=== PATIENT | female | born 1950 | race Caucasian/White ===

== ENCOUNTER 2016-06-13 05:33 | Day surgery (SDC) | payer MEDICARE, MEDICAID ==
[~2016-06-13] VITALS: Ht 160 cm; Wt 81.6 kg
--- NOTE | 2016-06-18 13:29 | OR ---
ADMIT: 06/13/2016 RM/LOC: [facility] MR#: [id number] ACC#: [id number] [address] [id number] FRANDY MORANINE Caleb [address] [address] Operative/Delivery Room Report SEX: F AGE: 65 : 1950 SURGERY DATE: 06/13/2016 SURGEON: Geraldo Go MD PREOPERATIVE DIAGNOSIS: Question of a spigelian hernia, left abdomen. POSTOPERATIVE DIAGNOSIS: Incisional hernia in the left lower abdomen. PROCEDURE: Laparoscopic repair of this hernia with an 11 cm Ventralight mesh. CEPHALOMETRIC ANALYST: Clover Aleman APRN NP, who was necessary for adequate assistance, exposure, and completion of this case. ANESTHESIA: General endotracheal tube anesthesia. ESTIMATED BLOOD LOSS: 10 mL. INDICATION FOR PROCEDURE: Please see H and P. DESCRIPTION OF PROCEDURE: After the risks, benefits, possible complications, and the alternatives had been explained and informed consent had been obtained, the patient was taken back to the operating room, underwent general anesthesia, and the surgical field was prepped and draped in a sterile manner. First, I made an infraumbilical incision. The Veress needle was inserted. The abdomen was insufflated with CO2. I placed a 5 mm port and the camera was placed directly through this site. She had this right paramedian incision and then she has had and then I think at some point, maybe another laparoscopic scar. As look into the left kind of lower abdomen in picture #1, you can see some of this fat, omentum stuck up in a defect there. So, I slowly worked all that down sharply with electrocautery scissors. Once it was all out and freed up, you can see that in picture #2, and this is chronic enough it just did not want to come back together with stitches. I tried some 0 Polysorb type suture or 0 Ethibond, and like I said, it just it was under so much tension that was going to just come back and so, I placed an another 12 mm right-sided port and chose an 11 cm. After measuring this, it was basically 5 x 6 cm and so, I chose an 11 cm Ventralight mesh with the Echo ADMIT: 06/13/2016 RM/LOC: [facility] MR#: [id number] [address] [place], [place] [id number] FRANDY MORANINE Caleb [address] [place] [address] Operative/Delivery Room Report SEX: F AGE: 65 : 1950 positioning system, and it was soaked, placed in the abdominal cavity, brought up into the defect. The Echo system for position was blown up. The mesh held up there nicely and then I was able to use the tacker to tack it into position, first circumferentially on the outside and then another row around the inside, kind of pulled, really tried to hold it in good place there, and you can see those pictures in #3 and #4 after the mesh was in place nicely. Once that was done, I injected 0.5% Marcaine in the incision site for pain control. I closed the fascia of the large port site, 12 mm right-sided port, with an 0 Polysorb suture and the suture passer. All ports were removed. The skin and incisions were all closed with 4-0 Monocryl. She tolerated it well. She was extubated and taken to recovery room in stable and satisfactory condition. Geraldo Go MD/ yue JOB #: [id number] CC: Geraldo Go, Attending Physician Jimmy Olguin, Family Physician
== END 2016-06-13 13:30 | disposition home or self-care (01) ==
LOC: SSS 05:33
PROC: 0WUF4JZ Supplement Abdominal Wall with Synthetic Substitute, Percutaneous Endoscopic Approach (ICD-10-PCS; principal; 2016-06-13)
DX: K43.2 Incisional hernia without obstruction or gangrene (principal); E11.9 Type 2 diabetes mellitus without complications; E03.9 Hypothyroidism, unspecified; I10 Essential (primary) hypertension; E78.00 Pure hypercholesterolemia, unspecified; J45.909 Unspecified asthma, uncomplicated; Z90.49 Acquired absence of other specified parts of digestive tract; Z98.51 Tubal ligation status; Z88.6 Allergy status to analgesic agent; Z79.899 Other long term (current) drug therapy